=== PATIENT | female | born 1980 | race Two or more races ===

== ENCOUNTER 2019-10-07 15:04 | Emergency (ER) | payer OTHER ==
[~2019-10-07] VITALS: Ht 170.2 cm; Wt 81.8 kg
[~2019-10-07 15:04] MED LIST: ALPR0.5T8 PO; BUPR75 PO
[2019-10-07] MEDS ORDERED: HYDROCODONE/ACETAMINOPHEN 5-325 MG TABLET PO ONE (15:45)
[2019-10-07 15:53] VITALS: BP 135/74
== END 2019-10-07 17:58 | disposition home or self-care (01) ==
LOC: EMS 15:06
DX: A60.00 Herpesviral infection of urogenital system, unspecified (principal); L02.01 Cutaneous abscess of face; F41.9 Anxiety disorder, unspecified; F17.210 Nicotine dependence, cigarettes, uncomplicated; F11.90 Opioid use, unspecified, uncomplicated; Z98.51 Tubal ligation status